=== PATIENT | female | born 1980 | race Two or more races ===

== ENCOUNTER 2017-01-18 06:18 | Inpatient (IN) | payer MEDICAID ==
[~2017-01-18] VITALS: Ht 157.5 cm; Wt 78.3 kg
[2017-01-18] MEDS ORDERED: OXYTOCIN 30U/ 0.9% NaCL 500ML 500 ML ONE (06:39)
[2017-01-18] MEDS ORDERED: LIDOCAINE 1%, 20ML ONE (06:39)
[2017-01-18] MEDS ORDERED: MISOPROSTOL 200 MCG TABLET ONE (06:39)
[2017-01-18] MEDS ORDERED: NEWBORN KIT ONE (06:39)
[2017-01-18] MEDS ORDERED: OXYTOCIN 30U/ 0.9% NaCL 500ML 500 ML IV ONE (06:42)
[2017-01-18] MEDS: D5%-LACTATED RINGERS 1,000 ML IV SCH ×2 (06:42→14:42)
[2017-01-18] MEDS: LACTATED RINGERS 1,000 ML IV SCH ×5 (06:48→16:00)
[2017-01-18 06:49] VITALS: BP 118/67
[2017-01-18] MEDS ORDERED: PREN1TAB27 PO (06:56)
[2017-01-18] MEDS ORDERED: CALCIUM CARBONATE 500 MG TAB.CHEW PO PRN (07:00)
[2017-01-18] MEDS ORDERED: TERBUTALINE 1 MG/ML, 1ML SQ PRN (07:00)
[2017-01-18] MEDS ORDERED: ONDANSETRON 2MG/ML, 2ML IVPush PRN (07:00)
[2017-01-18] MEDS ORDERED: FENTANYL PF 100 MCG/2ML IV PRN (07:00)
[2017-01-18] MEDS ORDERED: FENTANYL PF 100 MCG/2ML IVPush PRN (07:00)
[2017-01-18 07:15] LABS: HEMOGLOBIN 11.7 g/dL (11.7-16.4)
[2017-01-18] MEDS ORDERED: FENTANYL/BUPIV./NS/PF 250 ML EPIDCONT ONE (07:28)
[2017-01-18] MEDS ORDERED: BUPIVACAINE/PF 0.25% ONE (07:28)
[2017-01-18] MEDS ORDERED: FENTANYL/BUPIV./NS/PF 250 ML EPIDCONT SCH (08:00)
[2017-01-18] MEDS ORDERED: LACTATED RINGERS 1,000 ML IVBOLUS PRN (08:00)
[2017-01-18] MEDS ORDERED: EPHEDRINE 50 MG/ML, 1ML IVPush PRN (08:00)
[2017-01-18] MEDS ORDERED: NALOXONE 0.4 MG/ML, 1ML IVPush PRN (08:00)
[2017-01-18 08:02] LABS: HIV 1&2 ANTIBODY SCREEN Nonreactive (Nonreactive); HIV-1 p24 ANTIGEN Nonreactive (Nonreactive)
[2017-01-18] MEDS: OXYTOCIN 30U/ 0.9% NaCL 500ML 500 ML IV SCH (14:13)
[2017-01-18] MEDS ORDERED: IBUPROFEN 600 MG TABLET ONE (14:26)
[2017-01-18] MEDS ORDERED: MISOPROSTOL 200 MCG TABLET PR PRN (14:30)
[2017-01-18] MEDS ORDERED: METHYLERGONOVINE 0.2 MG/ML IM PRN (14:30)
[2017-01-18] MEDS ORDERED: HYDROcodone/APAP 5/325 TABLET PO PRN (14:30)
[2017-01-18] MEDS ORDERED: HYDROcodone/APAP 5/325 TABLET ONE (14:38)
[2017-01-18] MEDS: HYDROcodone/APAP 5/325 TABLET PO PRN ×2 (14:51→18:36)
[2017-01-18] MEDS: IBUPROFEN 600 MG TABLET PO PRN (14:51)
[2017-01-18 16:20] VITALS: BP 104/58
[2017-01-18 19:29] VITALS: BP 110/59
[2017-01-19 00:04] VITALS: BP 112/69
[2017-01-19] MEDS: IBUPROFEN 600 MG TABLET PO PRN ×2 (00:04→08:02)
[2017-01-19] MEDS: DOCUSATE 100 MG CAPSULE PO PRN ×2 (00:04→08:02)
[2017-01-19] MEDS: OXYTOCIN 30U/ 0.9% NaCL 500ML 500 ML IV SCH ×2 (00:13→10:13)
[2017-01-19 00:41] LABS: HEMOGLOBIN 10.8 g/dL (11.7-16.4)
[2017-01-19 02:50] VITALS: BP 104/60
[2017-01-19 06:41] VITALS: BP 104/73
[2017-01-19 07:32] VITALS: BP 100/53
[2017-01-19] MEDS: LACTATED RINGERS 1,000 ML IV SCH ×3 (08:00→16:00)
[2017-01-19] MEDS ORDERED: PRENATAL VIT/IRON/FA 1 EACH TABLET PO SCH (09:00)
[2017-01-19 11:43] VITALS: BP 115/67
[2017-01-19 15:45] VITALS: BP 116/68
== END 2017-01-19 17:20 | disposition home or self-care (01) | DRG 775 ==
LOC: LDOP 06:18 → LDIP 06:38 → 2NW 16:07
PROVIDERS: ADMIT Obstetrics & Gynecology; ATTEND Obstetrics & Gynecology
PROC: 10E0XZZ Delivery of Products of Conception, External Approach (ICD-10-PCS; principal; 2017-01-18)
PROC: 10907ZC Drainage of Amniotic Fluid, Therapeutic from Products of Conception, Via Natural or Artificial Opening (ICD-10-PCS; 2017-01-18)
PROC: 3E0R3CZ (ICD-10-PCS; 2017-01-18)
PROC: 00HU33Z Insertion of Infusion Device into Spinal Canal, Percutaneous Approach (ICD-10-PCS; 2017-01-18)
DX: O70.0 First degree perineal laceration during delivery (principal); Z37.0 Single live birth; Z3A.37 37 weeks gestation of pregnancy; Z90.49 Acquired absence of other specified parts of digestive tract
CPT/HCPCS: 36415; 85025; 86703; 86850; 86900; 87899; G0435; J2590; J3010; J7120